=== PATIENT | female | born 1990 | race Asian ===

== ENCOUNTER 2018-03-12 09:58 | Emergency (ER) | payer OTHER, MEDICAID ==
[2018-03-12] MEDS ORDERED: TDAP ADULT 0.5 ML INJ (BOOSTRIX) IM ONE (10:04)
[2018-03-12 10:15] VITALS: BP 124/80
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
[2018-03-12] MEDS ORDERED: IBUPROFEN 600 MG TAB PO ONE (10:54)
== END 2018-03-12 11:13 | disposition home or self-care (01) ==
LOC: EDUNIT#
DX: S63.92XA Sprain of unspecified part of left wrist and hand, initial encounter (principal); S62.347A Nondisplaced fracture of base of fifth metacarpal bone, left hand, initial encounter for closed fracture; Z23 Encounter for immunization; V49.40XA Driver injured in collision with unspecified motor vehicles in traffic accident, initial encounter; Y92.488 Other paved roadways as the place of occurrence of the external cause
CPT/HCPCS: G0010; L3807